=== PATIENT | female | born 1965 ===

== ENCOUNTER 2020-12-14 07:16 | Day surgery (SDC) | payer OTHER ==
[~2020-12-14 07:16] MED LIST: BUPROPION XL150 MG PO; RESTORIL30 MG PO
== END 2020-12-14 18:10 | disposition home or self-care (01) ==
LOC: CIR.AMB 07:16
PROVIDERS: ATTEND Colon & Rectal Surgery
DX: D12.8 Benign neoplasm of rectum (principal); D12.9 Benign neoplasm of anus and anal canal; K64.1 Second degree hemorrhoids; Z20.822 Contact with and (suspected) exposure to COVID-19

== ENCOUNTER 2021-03-15 07:59 | Emergency (ER) | payer OTHER ==
[~2021-03-15] VITALS: Ht 162.6 cm; Wt 111.1 kg
== END 2021-03-15 14:54 | disposition home or self-care (01) ==
LOC: ER 07:59
DX: K62.89 Other specified diseases of anus and rectum (principal); R10.2 Pelvic and perineal pain